=== PATIENT | female | born 1995 | race Two or more races ===

== ENCOUNTER 2018-09-11 02:36 | Inpatient (IN) | payer MEDICAID ==
[~2018-09-11] VITALS: Ht 165.1 cm; Wt 63.6 kg
[2018-09-11] VITALS (62 sets, daily range): BP systolic 131–193; BP diastolic 71–123
[2018-09-11] MEDS ORDERED: LR 1,000 ML IV ONE (03:00)
[2018-09-11] MEDS ORDERED: LABETALOL HCL 100 MG/20 ML VIAL As Ordered ONE ×3 (03:29→11:02)
[2018-09-11 03:42] LABS: HEMATOCRIT 33.2 % (36.0-47.0); HEMOGLOBIN 10.8 g/dl (12.0-15.5); MEAN CORPUSCULAR HEMOGLOBIN 27.6 pg (27.0-33.0); MEAN CORPUSCULAR HGB CONC 32.5 g/dl (32.0-36.5); MEAN CORPUSCULAR VOLUME 84.7 fl (80.0-96.0); PLATELET COUNT, AUTOMATED 401 10^3/uL (150-450); RED BLOOD COUNT 3.92 10^6/uL (4.00-5.40); WHITE BLOOD COUNT 21.2 10^3/uL (4.0-10.0)
[2018-09-11 04:04] LABS: ALT/SGPT 21 U/L (12-78); BILIRUBIN,TOTAL 0.1 MG/DL (0.2-1.0); CREATININE FOR GFR 0.69 MG/DL (0.55-1.30); GLOMERULAR FILTRATION RATE > 60.0 (>60); LDH LACTATE DEHYDROGENASE 276 U/L (84-246); URIC ACID 4.4 MG/DL (2.6-6.0)
[2018-09-11] MEDS ORDERED: FENTANYL 2MCG/ML ROPIVACAINE 0.2% IN 0.9% NACL 100ML IVBAG As Ordered ONE (04:14)
[2018-09-11] MEDS ORDERED: EPIDURAL/PCA KEYS XX PRN (06:00)
[2018-09-11] MEDS ORDERED: EPIDURAL COMMENT XX SCH (06:00)
[2018-09-11] MEDS ORDERED: FENTANYL/ROPIVACAINE/NACL BAG 100 ML EPIDURAL SCH (06:00)
[2018-09-11] MEDS ORDERED: REFRIGERATOR IV KEYS XX PRN (06:00)
[2018-09-11] MEDS ORDERED: ONDANSETRON 4MG/2ML VIAL (J2405) IV PRN ×3 (06:00→15:00)
[2018-09-11] MEDS ORDERED: NALOXONE INJ 0.4 MG/1 ML VIAL (J2310) IV PRN ×3 (06:00→14:05)
[2018-09-11] MEDS ORDERED: LACTATED RINGER'S 1000 ML IV PRN (06:00)
[2018-09-11] MEDS ORDERED: diphenhydrAMINE INJ 50MG/ML VIAL (J1200) IV PRN ×2 (06:00→14:05)
[2018-09-11] MEDS ORDERED: ePHEDrine SULFATE 25 MG/5 ML(5MG/ML) SYRINGE IV PRN (06:00)
[2018-09-11] MEDS ORDERED: MAGNESIUM *L&D* 4 GM/100 ML BAG (40MG/ML) (J3475) IV ONE (07:15)
[2018-09-11] MEDS ORDERED: MAGNESIUM SULFATE 4% INJ 20GM/500ML (40MG/ML) (J3475) As Ordered ONE ×2 (07:21→14:29)
[2018-09-11] MEDS ORDERED: MAGNESIUM *L&D* 4 GM/100 ML BAG (40MG/ML) (J3475) As Ordered ONE (07:21)
[2018-09-11] MEDS: MAG Sulf (OBGYN) 20GM/500ML 20,000 MG in APPROPRIATE DILUENT 1 EA IV SCH ×3 (07:47→14:53)
[2018-09-11] MEDS ORDERED: OXYTOCIN 30 UNITS IN 0.9% NaCl 500ML IV BAG (J2590) As Ordered ONE (08:47)
[2018-09-11] MEDS ORDERED: LR 1,000 ML IV SCH ×2 (10:30→13:25)
[2018-09-11] MEDS ORDERED: LABETALOL HCL 100 MG/20 ML VIAL IV STA (11:11)
[2018-09-11] MEDS ORDERED: hydrALAZINE INJ 20 MG/ML VIAL As Ordered ONE (11:32)
[2018-09-11] MEDS ORDERED: BICITRA 30ML SOLN UDC As Ordered ONE (11:34)
[2018-09-11] MEDS ORDERED: hydrALAZINE INJ 20 MG/ML VIAL IV STA ×2 (11:40→12:05)
[2018-09-11 11:45] LABS: HEMATOCRIT 33.9 % (36.0-47.0); HEMOGLOBIN 10.9 g/dl (12.0-15.5); MEAN CORPUSCULAR HEMOGLOBIN 27.2 pg (27.0-33.0); MEAN CORPUSCULAR HGB CONC 32.2 g/dl (32.0-36.5); MEAN CORPUSCULAR VOLUME 84.5 fl (80.0-96.0); PLATELET COUNT, AUTOMATED 387 10^3/uL (150-450); RED BLOOD COUNT 4.01 10^6/uL (4.00-5.40); WHITE BLOOD COUNT 28.1 10^3/uL (4.0-10.0)
[2018-09-11] MEDS ORDERED: ceFAZolin 1GM INJ (J0690 PER 500MG) As Ordered ONE (11:56)
[2018-09-11] MEDS ORDERED: dexameTHASONE 4 MG/ML 1ML VIAL (J1100) As Ordered ONE (12:57)
[2018-09-11] MEDS ORDERED: ONDANSETRON 4MG/2ML VIAL (J2405) As Ordered ONE (12:57)
[2018-09-11] MEDS ORDERED: LIDOCAINE 2% W/EPIN INJ 20ML **PRES FREE As Ordered ONE (12:57)
[2018-09-11] MEDS ORDERED: OXYTOCIN INJ 10 UNITS/ML VIAL (J2590) As Ordered ONE (12:57)
[2018-09-11] MEDS ORDERED: BICITRA 30ML SOLN UDC PO ONE (13:15)
[2018-09-11] MEDS ORDERED: RHOGAM 300 MCG (1500 IU) INJ (J2790) IM SCH (13:30)
[2018-09-11] MEDS ORDERED: MEASLES,MUMPS,RUBELLA VACCINE INJ (MMR-II) (90707) SC SCH (13:30)
[2018-09-11] MEDS ORDERED: ceFAZolin SOD 1 GM in D5W MINI-BAG PLUS 50 ML IV ONE (13:30)
[2018-09-11] MEDS ORDERED: MAG SULF 1GM/100ML (MAG RUN) 1 GM in APPROPRIATE DILUENT 1 EA IV SCH (13:30)
[2018-09-11] MEDS ORDERED: MOM 30ML SUSPENSION UDC PO PRN (13:30)
[2018-09-11] MEDS ORDERED: MORPHINE PRES-FREE INJ 10 MG/10 ML VIAL (J2274) As Ordered ONE (14:01)
[2018-09-11] MEDS ORDERED: NALBUPHINE HCL 10 MG/ML AMP (J2300) IV PRN ×2 (14:05→15:00)
[2018-09-11] MEDS ORDERED: METOCLOPRAMIDE INJ 10MG/2ML VIAL (J2765) IV PRN (14:05)
[2018-09-11 14:06] LABS: CORD GAS ABE V -6.5; CORD GAS HCO3 V 20.8 MEQ/L; CORD GAS O2 SAT V 44.5 %; CORD GAS PCO2 V 47.8 mmHg; CORD GAS PH V 7.256 UNITS; CORD GAS SBC V 18.1 MEQ/L; CORD GAS TCO2 V 22.2 MEQ/L
[2018-09-11 14:09] LABS: CORD GAS ABE A -5.3; CORD GAS O2 SAT A 27.2 %; CORD GAS PCO2 A 56.6 mmHg; CORD GAS PH A 7.227 UNITS; CORD GAS PO2 A 17.4 mmHg; CORD GAS SBC A 18.6 MEQ/L; CORD GAS TCO2 A 24.7 MEQ/L
[2018-09-11] MEDS ORDERED: fentaNYL 100 MCG/2 ML INJECTION (J3010) IV PRN (15:00)
[2018-09-11] MEDS ORDERED: KETOROLAC 30 MG/ML VIAL (J1885) IV PRN (15:00)
[2018-09-12] VITALS (19 sets, daily range): BP systolic 120–158; BP diastolic 67–95
[2018-09-12] MEDS ORDERED: BICITRA 30ML SOLN UDC PO SCH (06:00)
[2018-09-12] MEDS ORDERED: ceFAZolin SOD 1 GM in D5W MINI-BAG PLUS 50 ML IV ONE (06:00)
[2018-09-12 07:16] LABS: HEMATOCRIT 24.2 % (36.0-47.0); MEAN CORPUSCULAR HEMOGLOBIN 28.1 pg (27.0-33.0); MEAN CORPUSCULAR HGB CONC 33.1 g/dl (32.0-36.5); MEAN CORPUSCULAR VOLUME 84.9 fl (80.0-96.0); RED BLOOD COUNT 2.85 10^6/uL (4.00-5.40); WHITE BLOOD COUNT 26.2 10^3/uL (4.0-10.0)
[2018-09-12 07:41] LABS: PLATELET COUNT, AUTOMATED 283 10^3/uL (150-450)
[2018-09-12] MEDS: PRENATAL VITAMINS CHEWABLE TABLET PO SCH (09:26)
[2018-09-12] MEDS: MAG Sulf (OBGYN) 20GM/500ML 20,000 MG in APPROPRIATE DILUENT 1 EA IV SCH (09:28)
[2018-09-12] MEDS: IBUPROFEN 600 MG TAB PO PRN (12:33)
[2018-09-12] MEDS: DOCUSATE SODIUM 100 MG CAP PO PRN (20:16)
[2018-09-12] MEDS: PERCOCET 5MG/325MG TAB PO PRN (20:17)
[2018-09-13 02:00] VITALS: BP 134/87
[2018-09-13] MEDS: PERCOCET 5MG/325MG TAB PO PRN ×4 (04:31→21:00)
[2018-09-13 06:00] VITALS: BP 143/89
--- NOTE | 2018-09-13 06:40 | IPNPDOC ---
Text Note Date of Service The patient was seen on 09/13/18. NOTE PO #2 Off mag sulfate yesterday 1330. Fatigued. Reports adequate pain management. Voiding VSS Breasts soft, nipples intact Fundus firm @ U Dressing intact with old drainage marked Lochia rubra light without odor PO 2, post preeclampsia Routine care. Consider discharge in am. VS,Fishbone, I+O VS, Fishbone, I+O Laboratory Tests 09/12/18 06:57 Red Blood Count 2.85 L, Mean Corpuscular Volume 84.9, Mean Corpuscular Hemoglobin 28.1, Mean Corpuscular Hemoglobin Concent 33.1, Red Cell Distribution Width 14.4 Vital Signs Date Time Temp Pulse Resp B/P (MAP) Pulse Ox O2 Delivery O2 Flow Rate FiO2 09/13/18 06:00 99.7 100 16 143/89 (107) 97 I&O- Last 24 Hours up to 6 AM 09/13/18 06:00 Intake Total 587 ml Output Total 3360 ml Balance -2773 ml Leona Osorio CNM Sep 13, 2018 06:40
[2018-09-13] MEDS: PRENATAL VITAMINS CHEWABLE TABLET PO SCH (09:38)
[2018-09-13 10:00] VITALS: BP 152/94
[2018-09-13 14:00] VITALS: BP 145/94
[2018-09-13] MEDS: IBUPROFEN 600 MG TAB PO PRN (22:10)
[2018-09-13 22:19] VITALS: BP 158/100
[2018-09-13 23:18] VITALS: BP 139/90
[2018-09-14] VITALS (7 sets, daily range): BP systolic 137–155; BP diastolic 88–97
[2018-09-14] MEDS: PRENATAL VITAMINS CHEWABLE TABLET PO SCH (08:11)
[2018-09-14] MEDS: IBUPROFEN 600 MG TAB PO PRN (08:12)
--- NOTE | 2018-09-14 08:37 | NUR ---
- Overnight, Tmax 101.1, significant breast engorgement. S: Doing well. Has moderate pain control. Denies headache, visual changes or abd pain. O: vs: 141/91, AF Gen: well appearing abd: soft, appropriately tender, FF@ U-3 incision: C/D/I well approximated ext: neg calf tenderness neuro: grossly intact Labs: pending A/P: POD # 3 1 c/s recovering in stable condition. Cont postop care - preeclampsia -stable -postop fever -d/c tomorrow if remain afebrile Lucía Vargas MD
[2018-09-14 08:41] LABS: HEMATOCRIT 25.2 % (36.0-47.0); HEMOGLOBIN 7.9 g/dl (12.0-15.5); MEAN CORPUSCULAR HEMOGLOBIN 27.1 pg (27.0-33.0); MEAN CORPUSCULAR HGB CONC 31.3 g/dl (32.0-36.5); MEAN CORPUSCULAR VOLUME 86.6 fl (80.0-96.0); PLATELET COUNT, AUTOMATED 315 10^3/uL (150-450); RED BLOOD COUNT 2.91 10^6/uL (4.00-5.40); WHITE BLOOD COUNT 12.3 10^3/uL (4.0-10.0)
[2018-09-14] MEDS: DOCUSATE SODIUM 100 MG CAP PO PRN (09:00)
[2018-09-14] MEDS: LABETALOL 100 MG TAB PO SCH ×2 (09:01→20:34)
[2018-09-14] MEDS: PERCOCET 5MG/325MG TAB PO PRN ×2 (17:44→21:45)
[2018-09-15 02:00] VITALS: BP 150/90
[2018-09-15 06:00] VITALS: BP 151/98
[2018-09-15] MEDS: PRENATAL VITAMINS CHEWABLE TABLET PO SCH (08:36)
[2018-09-15] MEDS: PERCOCET 5MG/325MG TAB PO PRN (08:36)
[2018-09-15] MEDS: LABETALOL 100 MG TAB PO SCH ×2 (08:38→09:33)
[2018-09-15 09:33] VITALS: BP 160/87
[2018-09-15 10:00] VITALS: BP 132/82
[2018-09-15 14:00] VITALS: BP 137/85
[2018-09-15 18:00] VITALS: BP 143/68
[2018-09-15] MEDS ORDERED: LABE20TAB PO (18:12)
[2018-09-15] MEDS ORDERED: OXYC1TAB23 PO (18:12)
--- NOTE | 2018-09-15 19:03 | HPE ---
DATE OF ADMISSION: 09/11/2018 Olga is a 23-year-old female 1, para 0 with an estimated date of confinement (EDC) of 09/12/2018, estimated gestational age (EGA) of 40 weeks gestation who presented to labor and delivery with complaints of contraction and gross rupture of membrane. Upon evaluation, she was found to be in early labor. At this point, the decision was made for admission. She did receive most of her care in [place] and recently moved up here and has not established any care. Her record reviewed which was essentially unremarkable. PAST MEDICAL HISTORY: Denies. PAST SURGICAL HISTORY: Denies. SOCIAL HISTORY: Denies any alcohol, drugs or cigarette smoking. REVIEW OF SYSTEMS: Unremarkable. MEDICATIONS: vitamin. ALLERGIES: No known drug allergies. PHYSICAL EXAMINATION: HEENT: Grossly within normal limits. ABDOMEN: Soft, nontender, nondistended. EXTREMITIES: No clubbing, cyanosis or edema. VAGINAL EXAMINATION: Gross rupture of membranes, 6-7 cm dilated, fetus in vertex position, -1 station. Tracing reviewed, category 2 tracing with some deep variable decelerations and moderate to minimal variability. Contractions every 3-5 minutes. ASSESSMENT: Intrauterine at 40 weeks in active labor with spontaneous rupture of membrane. PLAN: Admit to labor and delivery. Routine laboratories sent. Pain management discussed. The patient will consider an epidural. We will continue to monitor. Anticipate delivery.
[2018-09-15] MEDS ORDERED: LABETALOL 200 MG TAB PO SCH (21:00)
--- NOTE | 2018-09-16 10:42 | RO ---
DATE OF PROCEDURE: 09/11/2018 BRIEF HISTORY: Olga is a 23-year-old female who was admitted at 40 weeks gestation in labor with a category 2 tracing. She progressed to approximately 8-9 cm dilated with non-reassuring heart rate tracing, pre-eclampsia with severe features as she had a severely elevated blood pressure. After extensive counseling, given that she was remote from delivery, the decision was made to proceed with primary section. PREOPERATIVE DIAGNOSES: 1. Non-reassuring heart rate tracing of 40 weeks gestation. 2. Pre-eclampsia. POSTOPERATIVE DIAGNOSES: 1. Non-reassuring heart rate tracing of 40 weeks gestation. 2. Pre-eclampsia. 3. Intrauterine growth restriction (IUGR). 4. Meconium-stained fluid. PROCEDURE: Primary low transverse section via Pfannenstiel incision. SURGEON: Dr. Cristi Kimble. DIRECTOR IT PROJECT: ANESTHESIA: Epidural. COMPLICATIONS: None. ESTIMATED BLOOD LOSS: 500 mL. FINDINGS: Live female in occiput transverse position. 6 and 8, birthweight 5 pounds 9 ounces, meconium-stained fluid. PROCEDURE: After obtaining informed consent, the patient was taken to the operating room where epidural anesthetic was found to be adequate. She was then draped and prepped usual sterile fashion in the supine position. At this point, a Pfannenstiel incision was made. This was carried down to fascia. Fascia was incised in midline fashion and carried through laterally. Superior aspect of the fascia was then grasped with two Jorge clamps, tented off and dissected off the rectus muscle sharply. The inferior aspect was dissected in a similar fashion. Rectus muscles in midline fashion. Perineum identified. Peritoneal cavity entered bluntly. Superior and inferior dissection of peritoneum was then done with good visualization of the bladder. At this point a Mobius skin retractor was placed and a low-transverse uterine incision was made. Infant was delivered in atraumatic fashion. Nose and mouth bulb suctioned. Cord doubly clamped and cut and was handed over to the waiting warmer. Cord blood and cord gas were sent. Placenta removed manually. Uterus cleared of all clot and debris and the uterine incision was repaired in two separate layers of 0 Vicryl sutures. Pelvis copiously irrigated with normal saline and suctioned out. Attention turned to the peritoneum which was closed in running fashion using #2-0 Vicryl. Fascia closed in two separate segment of 0 Vicryl sutures. All superficial bleeders coagulated and the skin was reapproximated in subcuticular fashion using #3-0 Vicryl on a Jay. Steri-Strips placed. The patient tolerated procedure well. She was then transferred to recovery room in stable condition.
--- NOTE | 2018-09-16 15:05 | DSES ---
DATE OF ADMISSION: 09/11/2018 DATE OF DISCHARGE: 09/15/2018 FINAL DIAGNOSES: 1. Nonreassuring heart rate tracing. 2. Severe preeclampsia. 3. Intrauterine growth restriction (IUGR), 4. Meconium-stained fluid. CONDITION ON DISCHARGE: Stable. DISCHARGE INSTRUCTIONS: The patient is instructed to call the office if there is any severe bleeding, pain, temperature greater than 101, or headache or blurred vision. She is given a prescription for Percocet as needed for pain and labetalol 200 mg twice a day. She is further instructed to followup in the office in 1 week for blood pressure check or with her obstetrical (OB) provider. She is also to have incision check in approximately 2 weeks. BRIEF HISTORY: Olga is a 23-year-old female, 1, para 0, was admitted at 40 weeks gestation in labor with spontaneous rupture of membranes. She underwent a section for nonreassuring heart rate tracing and severe preeclampsia. She was then placed on magnesium sulfate pre and post section. Magnesium sulfate was discontinued in 24 hours after delivery. She was then monitored on the floor. Continued to have some elevated blood pressures. Was continued on labetalol 200 mg twice a day. She did develop post-op temperature on postoperative day #2 due to breast engorgement. No significant white count. Hemoglobin and hematocrit was within normal limits. On postoperative day #4, she was evaluated and no significant changes were found. The patient was then discharged home to followup in the office in approximately 1 week for blood pressure check. She is to call if there is any severe bleeding, pain, or temperature greater than 101.
== END 2018-09-15 20:00 | disposition home or self-care (01) | DRG 540 ==
LOC: M LDO 02:36 → M LDI 02:53 → M OBS 09-12 14:23
PROVIDERS: ADMIT Obstetrics & Gynecology; ATTEND Obstetrics & Gynecology
PROC: 10D00Z1 Extraction of Products of Conception, Low, Open Approach (ICD-10-PCS; principal; 2018-09-11 13:49)
DX: O48.0 Post-term pregnancy (principal); O77.0 Labor and delivery complicated by meconium in amniotic fluid; Z37.0 Single live birth; Z3A.40 40 weeks gestation of pregnancy; O14.24 HELLP syndrome, complicating childbirth; O76 Abnormality in fetal heart rate and rhythm complicating labor and delivery

== ENCOUNTER 2018-10-14 16:29 | Emergency (ER) | payer OTHER, MEDICAID ==
[~2018-10-14] VITALS: Ht 165.1 cm; Wt 53.4 kg
[~2018-10-14 16:29] MED LIST: LABE20TAB PO; OXYC1TAB23 PO
[2018-10-14] MEDS ORDERED: OXYC1TAB23 (16:38)
[2018-10-14] MEDS ORDERED: LABE20TAB (16:38)
[2018-10-14 18:59] LABS: BASO # 0.1 10^3/uL (0.0-0.2); BASO % 0.6 % (0.0-1.0); EOS # 0.2 10^3/uL (0.0-0.50); HEMATOCRIT 35.3 % (36.0-47.0); HEMOGLOBIN 11.2 g/dl (12.0-15.5); LYMPH # 2.3 10^3/uL (1.5-6.5); LYMPH % 20.9 % (24.0-44.0); MEAN CORPUSCULAR HEMOGLOBIN 26.3 pg (27.0-33.0); MEAN CORPUSCULAR HGB CONC 31.7 g/dl (32.0-36.5); MEAN CORPUSCULAR VOLUME 82.9 fl (80.0-96.0); MONO # 0.9 10^3/uL (0.0-0.8); MONO % 8.2 % (0.0-5.0); NEUTROPHILS # 7.4 10^3/uL (1.8-7.7); NEUTROPHILS % 67.8 % (36.0-66.0); PLATELET COUNT, AUTOMATED 325 10^3/uL (150-450); RED BLOOD COUNT 4.26 10^6/uL (4.00-5.40); WHITE BLOOD COUNT 10.9 10^3/uL (4.0-10.0)
[2018-10-14 19:39] VITALS: BP 92/58
== END 2018-10-14 19:45 | disposition home or self-care (01) ==
LOC: M ED 16:29
DX: O90.89 Other complications of the puerperium, not elsewhere classified (principal); N92.0 Excessive and frequent menstruation with regular cycle; Z79.899 Other long term (current) drug therapy